=== PATIENT | female | born 1985 | race Caucasian/White ===

== ENCOUNTER → 2018-04-26 15:37 | Outpatient (CLI) | payer SELFPAY ==
[2018-04-26 19:12] LABS: Chlamydia Trachomatis by PCR Negative (Negative); Neisserai gonorrhoeae by PCR Negative (Negative); Probe Check PASS; Sample Adequacy Control PASS; Specimen Processing Control PASS
[2018-05-01 15:08] LABS: HPV Reflexed? NOT INDICATED
== END ==
LOC: LABSPEC 15:43
PROVIDERS: Visit Provider Obstetrics & Gynecology
DX: Z11.3 Encounter for screening for infections with a predominantly sexual mode of transmission (principal); Z12.4 Encounter for screening for malignant neoplasm of cervix
CPT/HCPCS: 87491; 87591; 88175; G0145

== ENCOUNTER → 2018-05-09 14:36 | Outpatient (CLI) | payer SELFPAY ==
[2018-05-09 16:09] LABS: Color, Urine Yellow (Yellow); Glucose, Dipstick Normal (Normal); Ketone-Dipstick Negative (Negative); Leukocyte Esterase-Dipstick 25 /ul (Negative); Nitrite-Dipstick Negative (Negative); Occult Blood-Urine Negative /ul (Negative); Protein-Dipstick Negative (Negative); Specific Gravity, Urine 1.025 (1.002-1.030); Urine Bilirubin Dipstick Negative (Negative); Urine Clarity Sl. Cloudy (Clear); Urine Urobilinogen Normal (Normal)
[2018-05-09 16:13] LABS: Absolute Lymphocyte Count 2.04 X10^3/ul (0.83-4.51); Absolute Neutrophil Count 7.7 X10^3/uL (2.0-7.7); Basophil# 0.01 X10^3/uL; Basophil% 0.1 % (0-1); Hematocrit 40.7 % (37-47); Hemoglobin 13.8 g/dl (12.0-15.0); Lymphocyte # 2.04 X10^3/ul (4.0); Lymphocyte % 19.7 % (19-41); Mean Corp Hgb Conc 33.9 g/gl (32-36); Mean Corpuscular Hgb 31.9 pg (27.0-32.0); Mean Corpuscular Volume 94.2 fL (81-99); Mean Platelet Vol. 10.6 fl (6.2-12.0); Monocyte# 0.55 X10^3/uL; Monocyte% 5.3 % (0-10); Neutrophil # 7.66 X10^3/uL (2.7-7.7); Neutrophil % 73.7 % (47-70); Platelet Count 238 K/mm3 (150-450); RBC Distribution Width CV 13.2 % (11.6-14.6); RBC Distribution Width SD 45.5 fl (35.1-43.9); Red Blood Count 4.32 M/mm3 (4.2-5.4); White Blood Count 10.4 K/mm3 (4.4-11.0)
[2018-05-09 16:21] LABS: COTININE Drug Screen Negative (<200 ng/mL); POSITIVE COUNT NO; POSITIVE DIFFERENTIAL NO; POSITIVE MORPHOLOGY NO
[2018-05-09 16:22] LABS: Amphetamine Urine VISTA NEGATIVE (<1000 ng/mL); Barbiturate Urine VISTA NEGATIVE (< 200 ng/mL); Benzodiazepine Urine VISTA NEGATIVE (< 200 ng/mL); Cocaine Urine VISTA NEGATIVE (< 300 ng/mL); Ecstacy Urine VISTA NEGATIVE (< 500 ng/mL); Methadone Urine VISTA NEGATIVE (< 300 ng/mL); PCP Urine VISTA NEGATIVE (< 25 ng/mL); THC Urine VISTA NEGATIVE (< 50 ng/mL); Vista UDS pH Range 6
[2018-05-09 16:23] LABS: Thyroid Stim Hormone (TSH) 2.94 uIU/mL (0.358-3.74)
[2018-05-10 02:29] LABS: Prenatal RPR NONREACTIVE (NONREACTIVE)
[2018-05-10 13:43] LABS: HIV - WCH Non-Reactive (Nonreactive); Rubella IgG 224.4 IU/mL
[2018-05-11 13:30] LABS: HEPATITIS B SURFACE AG Negative (Negative); Hep C Antibodies <0.1 s/co ratio (0.0-0.9)
== END ==
LOC: WOBLAB 14:38
PROVIDERS: Visit Provider Obstetrics & Gynecology
DX: Z34.81 Encounter for supervision of other normal pregnancy, first trimester (principal)
CPT/HCPCS: 36415; 80307; 81002; 84443; 85025; 86703; 86762; 86803; 87340

== ENCOUNTER 2018-07-27 19:53 | Outpatient (CLI) | payer SELFPAY ==
[2017-05-07 06:30] VITALS: BMI 29.7
[2018-07-27 20:36] VITALS: BMI 34.6
--- NOTE | 2018-07-28 08:50 | OB.TRI.NOTE ---
History of Present Illness Date of Service: 07/27/18 Was patient seen by the physician?: Yes Reason For Visit: R/O LABOR Date of Service: 07/27/18 Final LITA: 11/09/18 Gestational age: 25 Weeks and 0 Days History of Present Illness: 32 yo [id number] female at 25 wk presents with several concerns. She states spotting with wiping x one. Also aware of intermittent tachycardia at work. Pressure sensation to L arm and pressure sensation to L chin. H/O 39 wk delivery by forceps asssisted vaginal delivery. 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 130-140 with accels to 160s Variability:: Minimal Accelerations:: 15 x 15 Decelerations:: None NST Reactive:: Yes, Appropriate for gestational age FHR Category:: Category I Uterine Activity:: no UCs. Impression/Plan 25 wk False labor Friable cervix on exam Rest, inc po fluids Observe and report tachycardia If tachycardia at least daily , 24 hr Holter to be done. Advised if NOT daily occurrence will be difficult to catch on 24 hr holter.
--- NOTE | 2018-07-28 08:54 | OB.TRI.HP_ITS ---
History of Present Illness Date of Service: 07/27/18 Was patient seen by the physician?: Yes Reason For Visit: R/O LABOR Date of Service: 07/27/18 Final LITA: 11/09/18 Gestational age: 25 Weeks and 0 Days History of Present Illness: 32 yo [id number] female at 25 wk presents with several concerns. She states spotting with wiping x one. Also aware of intermittent tachycardia at work. Pressure sensation to L arm and pressure sensation to L chin. H/O 39 wk delivery by forceps asssisted vaginal delivery. 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 130-140 with accels to 160s Variability:: Minimal Accelerations:: 15 x 15 Decelerations:: None NST Reactive:: Yes, Appropriate for gestational age FHR Category:: Category I Uterine Activity:: no UCs. Impression/Plan 25 wk False labor Friable cervix on exam Rest, inc po fluids Observe and report tachycardia If tachycardia at least daily , 24 hr Holter to be done. Advised if NOT daily occurrence will be difficult to catch on 24 hr holter.
--- OUTSIDE RECORDS SUMMARY | 2018-09-20 21:49 | XMS RPT_ITS ---
:1985 Author Organization [facility] Care Team Providers Name Role Phone Justyn Partida Attending Unavailable Justyn Partida Attending Unavailable Sarah Rhoades Attending Unavailable Sarah Rhoades Referring Unavailable HILDA MARIO Primary Care Unavailable PROBLEMS PROBLEMS DATE TYPE CONDITION / CODE ATTENDING STATUS SOURCE 05/09/2018 Unknown Z34.81 - Encounter Justyn Partida Active [place] for supervision of Community other normal Hospital , first Repository trimester / Z34.81(ICD-10) 04/26/2018 Unknown Z11.3 - Encounter Justyn Partida for screening for Community infections with a Hospital predominantly Repository sexual mode of transmission / Z11.3(ICD-10) 04/26/2018 Unknown Z12.4 - Encounter Justyn Partida for screening for Community malignant neoplasm Hospital of cervix / Repository Z12.4(ICD-10) PROCEDURES PROCEDURES No Procedure Records FoundRESULTS RESULTS URINE DRUG SCREEN Collected: 05/09/2018 Status: F Source: [place] (DACIA) 2:39 PM [facility] REPOSITORY Order Comment: List of Drugs Taken or Suspected? UNK TYPE CODE TESTS RESULT OUT OF RANGE REFERENCE UNITS LAB L505.0075 TO BE Normal CONFIRMED Result Comment: CONFIRMATORY TESTING FOR ALL POSITIVE URINE DRUG SCREEN RESULTS WILL ONLY BE SENT OUT UPON PHYSICIAN ORDER. VISTA Urine Drug Screen methods provide only preliminary analytical test results. A more specific alternate chemical method must be used in order to obtain a confirmed analytical result. Gas chromatography/mass spectrometery (GC/MS) is the preferred confirmatory method. Clinical consideration and professional judgement should be applied to any drug of abuse test result, particularly when preliminary positive results are used. URINE TCA TESTING MUST BE ORDERED SEPARATELY. USE TEST MNEMONIC: [facility] LAB L505.5005 VISTA UDS PH 6 Normal LAB L505.5015 <1000 ng/mL AMPHETAMINES Normal NEGATIVE LAB L505.5025 < 200 ng/mL BARBITIURATES Normal NEGATIVE LAB L505.5035 < 200 ng/mL BENZODIAZIPINE Normal NEGATIVE LAB L505.5045 < 300 ng/mL COCAINE Normal NEGATIVE LAB L505.5055 < 500 ng/mL ECSTACY Normal NEGATIVE LAB L505.5065 < 300 ng/mL METHADONE Normal NEGATIVE LAB L505.5075 < 300 ng/mL OPIATES Normal NEGATIVE LAB L505.5085 < 25 ng/mL PCP Normal NEGATIVE LAB L505.5095 < 50 ng/mL THC Normal NEGATIVE Performed By: #### L505.5000, L505.6240 #### [facility] [address] [facility] [place], [address] NICOTINE URINE DRUG Collected: 05/09/2018 Status: F Source: [place] SCREEN 2:39 PM [facility] REPOSITORY Order Comment: List of Drugs Taken or Suspected? UNK TYPE CODE TESTS RESULT OUT OF RANGE REFERENCE UNITS LAB L505.6250 TO BE Normal CONFIRMED Result Comment: CONFIRMATORY TESTING FOR ALL POSITIVE URINE DRUG SCREEN RESULTS WILL ONLY BE SENT OUT UPON PHYSICIAN ORDER. The results of Urine Drug Screen methods provide only preliminary analytical test results. A more specific alternate chemical method must be used in order to obtain a confirmed analytical result. Gas chromatography/mass spectrometery (GC/MS) is the preferred confirmatory method. Clinical consideration and professional judgement should be applied to any drug of abuse test result, particularly when preliminary positive results are used. LAB L505.6270 <200 ng/mL Normal COT DRG Negative SCREEN Result Comment: Cotinine is the first-stage metabolite of Nicotine. Performed By: #### L505.5000, L505.6240 #### [facility] [address] [place], [place], [address] URINALYSIS, ROUTINE Collected: 05/09/2018 Status: F Source: [place] (DIPSTICK) 2:39 PM [facility] REPOSITORY Order Comment: How was Urine Obtained? Urine, Random TYPE CODE TESTS RESULT OUT OF RANGE REFERENCE UNITS LAB L400.3000 Yellow COLOR Normal Yellow LAB L400.3050 Clear Normal CLARITY Sl. Cloudy LAB L400.3200 Normal mg/dl Normal GLUCOSE, UR Normal LAB L400.3300 Negative mg/dL Normal BILIRUBIN URINE Negative LAB L400.3400 Negative mg/dl Normal KETONE UR Negative LAB L400.3465 1.002-1.030 Normal SP.GR. DIPSTX 1.025 LAB L400.3550 5.0 - 8.0 pH UR Normal 5.0 LAB L400.3600 Negative mg/dl PROT Normal DIPSTX Negative LAB L400.3700 Normal mg/dl Normal UROBILI Normal LAB L400.3750 Negative Normal NITRITE UR Negative LAB L400.3780 Negative /ul Normal OCCULT BLOOD-UR Negative LAB L400.3800 Negative /ul High LEUK 25 ESTERASE Performed By: #### L400.2010 #### [facility] [address] [place], [place], [address] CBC W/DIFF, AUTOMATED Collected: 05/09/2018 Status: F Source: [place] 2:39 PM [facility] REPOSITORY TYPE CODE TESTS RESULT OUT OF RANGE REFERENCE UNITS LAB L100.1000 4.4-11.0 K/mm3 Normal WBC 10.4 LAB L100.1200 4.2-5.4 M/mm3 Normal RBC 4.32 LAB L100.1300 12.0-15.0 g/dl Normal HGB 13.8 LAB L100.1400 37-47 % Normal HCT 40.7 LAB L100.1500 81-99 fL Normal MCV 94.2 LAB L100.1600 27.0-32.0 pg Normal MCH 31.9 LAB L100.1700 32-36 g/gl Normal MCHC 33.9 LAB L100.1810 11.6-14.6 % Normal RDW CV 13.2 LAB L100.1820 35.1-43.9 fl High RDW SD 45.5 LAB L100.1900 150-450 K/mm3 Normal PLT 238 LAB L100.2000 6.2-12.0 fl Normal MPV 10.6 LAB L100.2100 47-70 % High NEUT% 73.7 LAB L100.2200 19-41 % Normal LY% 19.7 LAB L100.2300 0-10 % Normal MONO% 5.3 LAB L100.2400 0-5 % Normal EO% 1.0 LAB L100.2500 0-1 % Normal BASO% 0.1 LAB L100.2550 0.0-0.9 % Normal IM GRAN % 0.200 Result Comment: IG% - Immature Granulocytes (promyelocytes, myelocytes and metamyelocytes) > 1% indicates that a LEFT SHIFT is Present. LAB L100.2620 2.0-7.7 X10 3/uL Normal Absolute Neut 7.7 LAB L100.2720 0.83-4.51 X10 3/ul Normal Absolute Lymph 2.04 Performed By: #### L100.0100 #### [facility] [address] [place], [place], [address] THYROID STIM HORMONE Collected: 05/09/2018 Status: F Source: [place] (TSH) 2:39 PM [facility] REPOSITORY TYPE CODE TESTS RESULT OUT OF RANGE REFERENCE UNITS LAB L501.9520 0.358-3.74 uIU/mL Normal TSH 2.94 Performed By: #### L501.9520 #### [facility] [address] [place], [place], [address] T AND S-NO Collected: 05/09/2018 Status: F Source: [place] CHARGE W/PNP 2:39 PM [facility] REPOSITORY Order Comment: Reason for Type AND Screen/Red Cells: Surgery? N TYPE CODE TESTS RESULT OUT OF RANGE REFERENCE UNITS LAB B10.0800 A Normal BLOOD POSITIVE TYPE GEL LAB B100.4050 Normal Ab SCREEN NEGATIVE GEL Performed By: #### B100.7550 #### [facility] [address] [place], [place], [address] RPR Collected: 05/09/2018 Status: F Source: [place] 2:39 PM [facility] REPOSITORY TYPE CODE TESTS RESULT OUT OF REFERENCE UNITS RANGE LAB L700.5100 NONREACTIVE Normal RPR NONREACTIVE Performed By: #### L700.5100 #### [facility] [address] [facility]. [place], [place], [address] RUBELLA IGG Collected: 05/09/2018 Status: F Source: [place] 2:39 PM [facility] REPOSITORY TYPE CODE TESTS RESULT OUT OF RANGE REFERENCE UNITS LAB L509.4000 IU/mL Normal Rubella IgG 224.4 Result Comment: Antibody results Interpretation of Immune Status < 5 IU/ml Presumed Non-immune 5 - < 10 IU/ml Equivocal > or = 10 IU/ml Presumed Immune Performed By: #### L509.4000, L3890.6005 #### [facility] [facility]. [place], [place], [id number] HIV - WCH Collected: 05/09/2018 Status: F Source: [place] 2:39 PM [facility] REPOSITORY TYPE CODE TESTS RESULT OUT OF RANGE REFERENCE UNITS LAB L3890.6005 Nonreactive Normal HIV - [facility] Non-Reactive Performed By: #### L509.4000, L3890.6005 #### [facility] [facility]. [place], [place], [id number] HEPATITIS B SURFACE Collected: 05/09/2018 Status: F Source: [place] AG 2:39 PM [facility] REPOSITORY TYPE CODE TESTS RESULT OUT OF RANGE REFERENCE UNITS LAB L3100.0400 Negative Normal HB Negative SURF AG Result Comment: Performed at: - [facility] [id number] Child Life Specialist: Rock Acosta PhD, Phone: [phone] Performed By: #### L3100.0390, L3100.0625 #### [facility] (refer to report for specific site) refer to report for address and phone number HEPATITIS C ANTIBODIES Collected: 05/09/2018 Status: F Source: [place] 2:39 PM [facility] REPOSITORY TYPE CODE TESTS RESULT OUT OF RANGE REFERENCE UNITS LAB L3100.0650 0.0-0.9 s/co ratio Normal HEP C AB <0.1 Result Comment: Negative: < 0.8 Indeterminate: 0.8 - 0.9 Positive: > 0.9 The CDC recommends that a positive HCV antibody result be followed up with a HCV Nucleic Acid Amplification test ([id number]). Performed By: #### L3100.0390, L3100.0625 #### [facility] (refer to report for specific site) refer to report for address and phone number CT/NG WCH BY PCR Collected: 04/26/2018 Status: F Source: [place] 1:30 PM [facility] REPOSITORY TYPE CODE TESTS RESULT OUT OF RANGE REFERENCE UNITS LAB L8200.2100 Negative Normal Chlam Negative Trac PCR LAB L8200.2200 Negative Normal NG by Negative PCR Performed By: #### L8200.1999 #### [facility] [address] 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 of containers..01 ThinPrep Vial TYPE CODE TESTS RESULT OUT OF RANGE REFERENCE UNITS LAB L7400.0800 . Normal DIAGN Comment Result Comment: NEGATIVE FOR INTRAEPITHELIAL LESION AND MALIGNANCY. LAB L7400.0900 . Normal ADEQ Comment Result Comment: Satisfactory for evaluation. Endocervical and/or squamous metaplastic cells (endocervical component) are present. LAB L7400.1400 . Normal PERFORM Comment Result Comment: Janette Calvo, Truant Officer (ASCP) LAB L7400.2575 . Normal TEST METHOD Comment Result Comment: This liquid based ThinPrep(R) pap test was screened with the use of an image guided system. LAB L7400.2600 . Normal . COMM LAB L7400.2700 . Normal PAPSMR Comment Result Comment: The Pap smear is a screening test designed to aid in the detection of premalignant and malignant conditions of the uterine cervix. It is not a diagnostic procedure and should not be used as the sole means of detecting cervical cancer. Both false-positive and false-negative reports do occur. LAB L7400.2800 . Normal HPV RFLX Comment Result Comment: The HPV DNA reflex criteria were not met with this specimen result therefore, no HPV testing was performed. Performed at: - [facility] [place] [id number] Child Life Specialist: Ana Hernandez MD, Phone: [phone] Performed By: #### L7400.0350 #### [facility] (refer to report for specific site) refer to report for address and phone number ALLERGIES ALLERGIES DATE TYPE / CODE NAME / CODE REACTION SEVERITY SOURCE 04/23/2017 Drug No Known Unknown [facility] Allergy/4160 Allergies/F00 Hospital 83735(SNOMED [id number](RXNOR Repository CT) M) ENCOUNTERS ENCOUNTERS ADMIT/DISCHARGE ACCOUNT ADMITTING ENCOUNTER LOCATION SOURCE NUMBER CLASS 07/27/2018/ [id number] Ambulatory [place] [facility] 2 [facility] ing:WPOUTRoom Repository : [id number] 05/09/2018 [id number] Amb[facility] [place] 9 [facility] ing:WOBLAB Repository 04/26/2018 [id number] Ambulatory [place] 0 [facility] ing:LABSPEC Repository PAYERS PAYERS ENCOUNTER GUARANTOR PAYER SUBSCRIBER SOURCE 07/27/2018 LAURA MCLAIN730 Primary NOT GIVENUNK [place] [facility], Insurance:SELF PAY [facility] [address]Xcl: [facility] Number: Effective Repository (HP) Date:2018-07-27 05/09/2018 Laura Mclain730 Primary NOT GIVENUNK [place] [facility] Insurance:SELF PAY [facility] [address]Ckr: [phone]) Number: Effective Repository [phone] (HP) Date:2018-05-09 04/26/2018 Lauranabila Mclain730 Primary NOT GIVENUNK [place] Insurance:SELF PAY [place] [id number]: [phone] Number: Effective Repository [phone] (HP) Date:2018-04-26
== END 2018-07-27 21:05 | disposition home or self-care (01) ==
LOC: WPOUT 20:15 → WP 20:17
PROVIDERS: Family Provider Family Medicine; PCP Family Medicine; Referring Provider Obstetrics & Gynecology; Visit Provider Obstetrics & Gynecology
DX: O47.02 False labor before 37 completed weeks of gestation, second trimester (principal); Z3A.25 25 weeks gestation of pregnancy; R00.0 Tachycardia, unspecified
CPT/HCPCS: 59025; 59050; 99218; G0378

== ENCOUNTER 2018-11-06 07:07 | Inpatient (IN) | payer OTHER, SELFPAY ==
[2018-11-06 07:11] VITALS: BMI 40.5
[2018-11-06] MEDS: Lactated Ringers 1,000 ML 50 ML IV ×2 (07:40→15:00)
[2018-11-06 08:10] LABS: Hematocrit 39.3 % (37-47); Hemoglobin 13.3 g/dl (12.0-15.0); Mean Corp Hgb Conc 33.8 g/gl (32-36); Mean Corpuscular Hgb 32.4 pg (27.0-32.0); Mean Corpuscular Volume 95.9 fL (81-99); Platelet Count 187 K/mm3 (150-450); RBC Distribution Width CV 13.1 % (11.6-14.6); RBC Distribution Width SD 45.1 fl (35.1-43.9); White Blood Count 10.6 K/mm3 (4.4-11.0)
[2018-11-06 08:25] LABS: Scan Indicated on CBC? Y/N NO
[2018-11-06] MEDS: Oxytocin 30 units/NS 500 ml 30 UNITS/500 ML IV.SOLN IV (09:05)
[2018-11-06] MEDS: fentaNYL-bupivacaine (epidural) 100 ML BAG EPIDURAL (13:30)
--- NOTE | 2018-11-06 21:27 | PCM.PN.OB ---
Subjective: Feeling contractions. Has been pushing for 3 hours. Objective: Afeb VSS. FHR tracing Cat 1. - Physical Exam General: Alert, Oriented x3, Cooperative, No apparent distress Abdomen: Soft, Non Tender, Non-Distended, Gravid, Appropriate for Gestational Age Extremities: Edema - trace LE Skin: No rashes Neurological: Neuro grossly intact Psych/Mental Status: Normal Affect Comment: CE FD +1 to +2 station Weight: 243 lb 6 oz Body Mass Index (BMI) 40.5 Laboratory Tests Past 24 Hrs 11/06/18 11/06/18 07:55 07:55 WBC 10.6 RBC 4.10 L Hgb 13.3 Hct 39.3 MCV 95.9 MCH 32.4 H MCHC 33.8 RDW 13.1 RDW Differential 45.1 H Plt Count 187 MPV 11.0 Blood Type A POSITIVE Antibody Screen NEGATIVE Medical Necessity - Tobacco Use Smoking Status: Never smoker Assessment/Plan Argelia has been pushing for three hours without significant change in station. Attempted Kiwi vacuum assist twice with no significant change in station. Discussed diagnosis of arrest of descent. Given lack of progress very unlikely with further pushing efforts baby could be delivered vaginally. section procedures discussed including risks and postoperative expectations. She agrees with proceeding to this delivery option.
--- NOTE | 2018-11-06 21:34 | PN.OBGYN_ITS ---
Subjective: Feeling contractions. Has been pushing for 3 hours. Objective: Afeb VSS. FHR tracing Cat 1. - Physical Exam General: Alert, Oriented x3, Cooperative, No apparent distress Abdomen: Soft, Non Tender, Non-Distended, Gravid, Appropriate for Gestational Age Extremities: Edema - trace LE Skin: No rashes Neurological: Neuro grossly intact Psych/Mental Status: Normal Affect Comment: CE FD +1 to +2 station Weight: 243 lb 6 oz Body Mass Index (BMI) 40.5 Laboratory Tests Past 24 Hrs 11/06/18 11/06/18 07:55 07:55 WBC 10.6 RBC 4.10 L Hgb 13.3 Hct 39.3 MCV 95.9 MCH 32.4 H MCHC 33.8 RDW 13.1 RDW Differential 45.1 H Plt Count 187 MPV 11.0 Blood Type A POSITIVE Antibody Screen NEGATIVE Medical Necessity - Tobacco Use Smoking Status: Never smoker Assessment/Plan Argelia has been pushing for three hours without significant change in sta tion. Attempted Kiwi vacuum assist twice with no significant change in station. Discussed diagnosis of arrest of descent. Given lack of progress very unlikely with further pushing efforts baby could be delivered vaginally. section procedures discussed including risks and postoperative expectations. She agrees with proceeding to this delivery option.
[2018-11-06] MEDS: Sodium Citrate/Citric Acid 30 ML UDC PO (21:35)
[2018-11-06] MEDS: Cefazolin 2 GM in 0.9% Normal Saline 100 ML IV (21:45)
--- NOTE | 2018-11-06 21:54 | OP.PCM_ITS ---
Report of Operation Date of Procedure: 11/06/18 Pre-Operative Diagnosis: Arrest of Descent in Active Labor at Term Post-Operative Diagnosis: Same Surgery/Procedure Performed:: Primary Low Transverse Section Description of Surgical Findings:: Maximum descent was +1 to +2 Station. Meconium stained fluid was present. Normal appearing uterus, ovaries, and fallopian tubes. Delivery of a live male with active cry at delivery. There was a cord around the neck x 2. Apgars were 8/9. weight 9lb6oz. Placenta appeared normal. explosives worker: Mitch West Type of Anesthesia:: Epidural Anesthesiologist: Asher Dueñas Special Medications: none Specimen's removed: none Drains: Quinn Estimated Blood Loss (mL): 400cc Fluids Replaced: 900cc LR Description of Procedure: Laura progressed to fully dilated pushed for three hours with no significant descent of the vertex past +1 to +2 station. Primary section was performed with indication of arrest of descent. She was taken to the OR with IV running. She was given two grams of Ancef intravenously for surgical prophylaxis. Her epidural was dosed and once adequate she was prepped and draped in the supine position with a leftward tilt. A Pfannensteil skin incision was then made with the scalpel and the underlying subcutaneous tissue was dissected down to the level of fascia with sharp and blunt dissection. The fascia was then incised horizontally in the midline. The fascial defect was extended bilaterally with the Silvestre scissors. The upper portion of the fascial defect was grasped with two Jaclyn clamps, elevated, and the rectus muscles dissected off with sharp dissection. In a similar fashion the fascia was dissected off the lower fascial defect. The rectus muscles were in the midline, the peritoneum identified and entered sharply. The peritoneal defect was enlarged using blunt dissection. A bladder blade was placed. The vesicouterine peritoneum was identified and entered sharply. A bladder flap was then created and the bladder blade replaced. The lower uterine segment was incised in a transverse fashion. Once the uterine cavity was entered it was enlarged using lateral and superior traction. The baby's head was then delivered atraumatically followed by the body. The nares and mouth were suctioned with a bulb suction. delayed cord clamping was employed. The cord was then clamped and cut and the baby handed to the waiting nurse for evaluation. The placenta was then delivered manually, the uterus exteriorized, and the cavity cleared of all clot and membranes. The uterine defect was then closed in two layers with #1 Vicryl. The posterior cul de sac and gutters were cleared of all clot and fluid. The uterus was returned to the abdomen. The uterine incision was inspected and found to be hemostatic. The peritoneum was then closed with a running stitch of 2-0 Vicryl. The rectus muscles were reapproximated with interrupted sutures of 0-Vicryl. The fascia was closed with a running stitch of #1 Stratofix suture. The subcutaneous tissue was closed with 2-0 Vicryl. The skin was closed with a subcuticular stitch of 4-0 Monocryl. Sponge, lap, needle, and instrument counts were correct. She was taken to the recovery room in stable condition. Grafts/Implants Used: none - Complications none - Admit VTE Documentation VTE Present on Admission: No VTE Mechan Device Prophylaxis: SCD's VTE Pharm Prophylaxis ordered?: No Reason prophylaxis not ordered:: Treatment Not Indicated Delivery Classification: LEONCIO Final LITA: 11/09/18 Final LITA Source: <20 weeks Gestational age: 39 Weeks and 4 Days Indications for : Arrrest of Descent Description of Procedure: See OP report Amniotic Membrane Rupture Type: Artificial Amniotic Fluid Description: Clear Placenta Disposition: [facility] Drain: Quinn to straight drain Fluids Replaced: 900cc LR Cord Entanglement: Around neck x 2, loose Nuchal Cord Compression: Without compression Cord Vessel Description: 3 Vessels Esitmated Blood Loss (ml): 400cc Infant Gender: Male (1 minute): 8 (5 minute): 9 Delayed cord clamping: Yes Pre-op Antibiotic Given: Ancef 2 grams IV x1 Pt instructed on risks of surgery: Bleeding, Infection, Injury to surrounding structure(s) including bowel and bladder Complications: None - Admit VTE Documentation VTE Present on Admission: No VTE Mechan Device Prophylaxis: SCD's VTE Pharm Prophylaxis ordered?: No
[2018-11-06] MEDS: Oxytocin 30 units/NS 500 ml 30 UNITS/500 ML IV.SOLN 167 UNITS IV (22:09)
[2018-11-06 22:50] VITALS: BP 131/73; BP 138/75; PULSE 113; RESP 16; TEMP 36.8; O2SAT 100
[2018-11-06 22:55] VITALS: BP 131/73; BP 138/75; PULSE 113; RESP 16; TEMP 36.8; O2SAT 100
[2018-11-06 23:15] VITALS: BP 117/97; BP 138/75; PULSE 110; RESP 18; O2SAT 97
[2018-11-06 23:30] VITALS: BP 138/75; BP 140/83; PULSE 109; RESP 18; TEMP 36.8; O2SAT 97
[2018-11-06 23:45] VITALS: BP 138/75; BP 144/61; PULSE 106; RESP 18; O2SAT 97
--- NOTE | 2018-11-06 23:52 | NURSING ---
2345- noted small gush with fundal assessment.
[2018-11-07] VITALS (23 sets, daily range): BP systolic 103–138; BP diastolic 56–87; PULSE 87–115; RESP 18–20; TEMP 36.2–37.1; O2SAT 93–98
[2018-11-07] MEDS: Ketorolac 30 MG/ML Syringe IV ×3 (05:44→17:41)
[2018-11-07] MEDS: Lactated Ringers 1,000 ML 100 ML IV (05:44)
[2018-11-07] MEDS: Cefazolin 1 GM/50 ML BAG IV ×2 (05:44→13:50)
[2018-11-07 06:17] LABS: Hematocrit 35.1 % (37-47); Hemoglobin 11.7 g/dl (12.0-15.0); Mean Corp Hgb Conc 33.3 g/gl (32-36); Mean Corpuscular Hgb 32.4 pg (27.0-32.0); Mean Corpuscular Volume 97.2 fL (81-99); Mean Platelet Vol. 11.2 fl (6.2-12.0); Platelet Count 165 K/mm3 (150-450); RBC Distribution Width CV 12.8 % (11.6-14.6); Red Blood Count 3.61 M/mm3 (4.2-5.4); White Blood Count 14.5 K/mm3 (4.4-11.0)
[2018-11-07 06:20] LABS: Scan Indicated on CBC? Y/N NO
--- NOTE | 2018-11-07 08:09 | PCM.PN.OB ---
Subjective: No complaints. Breast feeding. Pain reasonably controlled. Bleeding appropriate. Objective: Afeb VSS Hgb appropriate POD#1. - Physical Exam General: Alert, Oriented x3, Cooperative, No apparent distress Lungs: Clear to auscultation, Normal air movement Cardiovascular: Regular rate, Regular Rhythm Abdomen: Soft, Non Tender, Non-Distended, - - Incision dressing dry Extremities: Edema - trace Skin: No rashes Neurological: Neuro grossly intact Psych/Mental Status: Normal Affect Comment: Lochia appropriate Vital Signs Temp Pulse Resp BP Pulse Ox 98.2 F 90 18 107/58 L 96 / 05:30 11/07/18 05:30 11/07/18 06:30 11/07/18 05:30 11/07/18 06:30 Oxygen Delivery Method Room Air Weight: 243 lb 6 oz Body Mass Index (BMI) 40.5 Intake and Output for Last 24 Hours 03//11/06/18 11/07/18 23:59 23:59 23:59 Intake Total 900 / 900 1489 / 1489 Output Total 770 / 770 Balance 900 / 900 719 / 719 Laboratory Tests Past 24 Hrs 11/06/11/06/18 11/07/18 07:55 07:55 05:50 WBC 10.6 14.5 H RBC 4.10 L 3.61 L Hgb 13.3 11.7 L Hct 39.3 35.1 L MCV 95.9 97.2 MCH 32.4 H 32.4 H MCHC 33.8 33.3 RDW 13.1 12.8 RDW Differential 45.1 H 44.0 H Plt Count 187 165 MPV 11.0 11.2 Blood Type A POSITIVE Antibody Screen NEGATIVE Medical Necessity - Tobacco Use Smoking Status: Never smoker Assessment/Plan doing well on POD#1 s/p primary C/S. Baby doing well. Continue routine post op care.
--- NOTE | 2018-11-07 08:15 | DCINST_ITS ---
Discharge Diet: No Restrictions Discharge Activity: Return to Normal Activity, May Not Drive, May not drive while taking narcotic pain medications., May Shower Return to work on:: 01/07/19 May resume sexual activity in: 4-6 weeks Call your doctor if your incision/area has: Sudden Increased Bleeding, Increased Pain/ Swelling, Increased Redness, Foul Smelling Discharge, Swelling at the incision site Call your doctor if you observe: Fever of 101 or Higher, Inability to urinate, Inability to have a bowel movement, Using more than one pad per hour, Shortness of breath, Chest pain, Calf discomfort, Uncontrolled pain Remove Dressing in (days):: 3 Cleanse incision/area with: Soap & Water Additional Instructions: If you experience any of the following, contact your healthcare provider. * Bleeding that soaks a pad every hour for 2 hours * Fever 100.4 or higher * Unrelieved incision or abdominal pain * Swelling, redness, discharge or bleeding from your incision or episiotomy site * Your incision begins to separate * Problems urinating (including inability to urinate or burning while urinating). * Visual changes * Severe headache * Flu-like symptoms * Pain or redness in one of both of your breasts * Pain, warmth, tenderness or swelling in your legs, especially the calf area * Frequent nausea and vomiting * Symptoms of depression or anxiety If you experience any of the following, call 911 or go to the nearest Emergency Room. * Chest pain * Problems breathing * Seizure activity * Partial or complete paralysis of a body part, slurred speech, weakness or drooping of the face, or a sudden inability to walk or hold your balance Allergies/Adverse Reactions: Allergies No Known Allergies Allergy (Verified 04/23/17 23:34) Medications to take at Discharge Vits [Prenatabs FA] 1 tablet PO DAILY 07/27/18 Ibuprofen 600 mg PO 4X/DAY #30 tab 11/07/18 Oxycodone [Oxyir] 5 - 10 mg PO Q4H PRN PRN 7 Days #30 tab 11/07/18 The following prescriptions were given: Oxycodone [Oxyir] 5 - 10 mg PO Q4H PRN PRN 7 Days #30 tab PRN Reason: Mod-Severe Pain (-06/05) Ibuprofen 600 mg PO 4X/DAY #30 tab Follow-Up: Call to make an appointment with your doctor for an incision check in 1-2 weeks. You will also need a 6 week post- follow up appointment. Test results from this visit will be discussed in further detail at your follow- up appointment, if applicable. Please Follow Up With: Justyn Partida MD When: one week Primary Care Physician: Rohan Humphrey MD [Primary Care Provider] - Proposed Discharge Date: 11/09/18
[2018-11-07] MEDS: Prenatal Vits Tablet 1 TABLET PO (11:54)
[2018-11-07] MEDS: 0.9% Saline Lock 10 ML Syringe IV ×2 (13:50→17:40)
[2018-11-07] MEDS: Acetaminophen 500 MG Tablet 1000 MG PO (21:26)
[2018-11-08] MEDS: Ketorolac 30 MG/ML Syringe IV ×2 (01:09→06:30)
[2018-11-08 01:25] VITALS: BP 139/80; PULSE 104; RESP 18; TEMP 36.3
[2018-11-08] MEDS: 0.9% Saline Lock 10 ML Syringe IV (06:31)
[2018-11-08] MEDS: Senna/Docusate Sodium 1 Tablet PO (07:54)
[2018-11-08 08:00] VITALS: BP 116/62; PULSE 79; RESP 17; TEMP 36.6; O2SAT 98
--- NOTE | 2018-11-08 08:52 | PCM.PN.OB ---
Subjective: Pain better controlled today. Some cramping with breast feeding. Tolerating PO well. Voiding. Bleeding light. Breast feeding. Objective: Afeb VSS - Physical Exam General: Alert, Oriented x3, Cooperative, No apparent distress Lungs: Clear to auscultation, Normal air movement Cardiovascular: Regular rate, Regular Rhythm Abdomen: Soft, Non Tender, Non-Distended, - - Incision dressing dry Skin: No rashes Neurological: Neuro grossly intact Psych/Mental Status: Normal Affect Comment: Lochia light Vital Signs Temp Pulse Resp BP Pulse Ox 97.3 F L 104 H 18 139/80 H 95 11/08/18 01:25 11/08/18 01:25 11/08/18 01:25 11/08/18 01:25 11/07/18 21:30 Oxygen Delivery Method Room Air Weight: 243 lb 6 oz Body Mass Index (BMI) 40.5 Intake and Output for Last 24 Hours 11/06/18 11/07/18 11/08/18 23:59 23:59 23:59 Intake Total 900 / 900 2789 / 2789 Output Total 2770 / 2770 200 / 200 Balance 900 / 900 -200 / -200 Medical Necessity - Tobacco Use Smoking Status: Never smoker Assessment/Plan Doing well on POD#2. Continue routine PO care. Anticipate discharge home tomorrow.
[2018-11-08] MEDS: Prenatal Vits Tablet 1 TABLET PO (11:15)
[2018-11-08] MEDS: Ibuprofen 600 MG Tablet PO ×3 (11:37→23:23)
[2018-11-08 13:30] VITALS: BP 122/65; PULSE 79; RESP 17; TEMP 36.6; O2SAT 98
[2018-11-08] MEDS: Acetaminophen 500 MG Tablet 1000 MG PO (15:03)
[2018-11-08 20:05] VITALS: BP 148/79; BP 151/80; PULSE 100; RESP 18; TEMP 36.8; O2SAT 99
[2018-11-09 00:09] VITALS: BP 133/86; PULSE 98; RESP 16; TEMP 37.1; O2SAT 99
[2018-11-09] MEDS: Acetaminophen 500 MG Tablet 1000 MG PO ×2 (01:20→10:22)
[2018-11-09] MEDS: Ibuprofen 600 MG Tablet PO (05:32)
[2018-11-09 05:43] VITALS: BP 131/82; PULSE 90; RESP 18; TEMP 36.2; O2SAT 98
--- NOTE | 2018-11-09 09:01 | PCM.PN.OB ---
Subjective: Some increase in lower extremity swelling. Pain reasonably controlled with PO medications. Not taking oxycodone at this point. Breast feeding. Objective: AFeb VSS - Physical Exam General: Alert, Oriented x3, Cooperative, No apparent distress Lungs: Clear to auscultation, Normal air movement Cardiovascular: Regular rate, Regular Rhythm Abdomen: Soft, Non Tender, Non-Distended, - - Incision dressing dry Extremities: No Calf Tenderness, Edema - 1+ LE Skin: No rashes Neurological: Neuro grossly intact Psych/Mental Status: Normal Affect Comment: Lochia light Vital Signs Temp Pulse Resp BP Pulse Ox 97.1 F L 90 18 131/82 H 98 11/09/18 05:43 11/09/18 05:43 11/09/18 05:43 11/09/18 05:43 11/09/18 05:43 Oxygen Delivery Method Room Air Weight: 243 lb 6 oz Body Mass Index (BMI) 40.5 Intake and Output for Last 24 Hours 11/07/12 11// 23:59 23:59 23:59 Intake Total 2789 / 2789 Output Total 2770 / 2770 200 / 200 Balance -200 / -200 Medical Necessity - Tobacco Use Smoking Status: Never smoker Assessment/Plan Doing well on POD#3. Cleared for discharge home today. Home going instructions and warnings given. May need hotel status as baby with elevated bilirubin issues.
--- NOTE | 2018-11-09 09:07 | DS.PCM_ITS ---
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 Pitocin induction brought patient to fully dilated but despite 3 hours of pushing there was no change in station. Primary low transverse section was performed without complication. Post operative course was unremarkable. She was discharged on POD#3.] - Physical Exam General: Alert, Oriented x3, Cooperative, No apparent distress Lungs: Clear to auscultation, Normal air movement Cardiovascular: Regular rate, Regular Rhythm Abdomen: Soft, Non Tender, Non-Distended, - - Incision dressing dry Extremities: No Calf Tenderness, Edema - 1+ LE edema Skin: No rashes Neurological: Neuro grossly intact Psych/Mental Status: Normal Affect Comment: Lochia light Vital Signs Temp Pulse Resp BP Pulse Ox 97.1 F L 90 18 131/82 H 98 11/09/18 05:43 11/09/18 05:43 11/09/18 05:43 11/09/18 05:43 11/09/18 05:43 Oxygen Delivery Method Room Air Weight: 243 lb 6 oz Body Mass Index (BMI) 40.5 Intake and Output for Last 24 Hours 11/07/18 11/08/18 11/09/18 23:59 23:59 23:59 Intake Total 2789 / 2789 Output Total 2770 / 2770 200 / 200 Balance -200 / -200 Discharge Diet: No Restrictions Discharge Activity: Return to Normal Activity, May Not Drive, May not drive while taking narcotic pain medications., May Shower Return to work on:: 01/07/19 May resume sexual activity in: 4-6 weeks Call your doctor if your incision/area has: Sudden Increased Bleeding, Increased Pain/ Swelling, Increased Redness, Foul Smelling Discharge, Swelling at the incision site Call your doctor if you observe: Fever of 101 or Higher, Inability to urinate, Inability to have a bowel movement, Using more than one pad per hour, Shortness of breath, Chest pain, Calf discomfort, Uncontrolled pain Remove Dressing in (days):: 3 Cleanse incision/area with: Soap & Water Home Medications: Medications to take at Discharge Vits [Prenatabs FA] 1 tablet PO DAILY 07/27/18 Ibuprofen 600 mg PO 4X/DAY #30 tab 11/07/18 Oxycodone [Oxyir] 5 - 10 mg PO Q4H PRN PRN 7 Days #30 tab 11/07/18 Following Prescrptions Were Given to Patient: Oxycodone [Oxyir] 5 - 10 mg PO Q4H PRN PRN 7 Days #30 tab PRN Reason: Mod-Severe Pain (-06/05) Ibuprofen 600 mg PO 4X/DAY #30 tab Primary Care Physician: Rohan Humphrey MD [Primary Care Provider] - Please Follow Up With: Justyn Partida MD When: one week Disposition: Home Minutes spent on discharge:: 15 Patient Condition:: Good Medical Necessity - Tobacco Use Smoking Status: Never smoker Meaningful Use Info Meaningful Use Diagnoses (Choose all that apply): None applicable
[2018-11-09 09:10] VITALS: BP 129/76; PULSE 94; RESP 16; TEMP 36.6; O2SAT 97
[2018-11-09] MEDS: Prenatal Vits Tablet 1 TABLET PO (10:22)
== END 2018-11-09 12:55 | disposition home or self-care (01) | DRG 788 ==
PROVIDERS: Admitting Provider Obstetrics & Gynecology; Family Provider Family Medicine; PCP Family Medicine; Referring Provider Obstetrics & Gynecology; Visit Provider Obstetrics & Gynecology
DX: O32.4XX0 Maternal care for high head at term, not applicable or unspecified (principal); O75.9 Complication of labor and delivery, unspecified; O69.81X0 Labor and delivery complicated by cord around neck, without compression, not applicable or unspecified; P03.82 Meconium passage during delivery; Z3A.39 39 weeks gestation of pregnancy; Z37.0 Single live birth
CPT/HCPCS: 59025; 59050; 85027; 86850; 86900; 99218; J7120; A4216; G0378